=== PATIENT | female | born 1990 | race Caucasian/White ===

== ENCOUNTER 2020-03-29 21:01 | Emergency (ER) | payer OTHER ==
[~2020-03-29] VITALS: Ht 160 cm; Wt 79.4 kg
[2020-03-29 21:41] LABS: ABSOLUTE NEUTROPHILS 8.2 thou/uL (1.4-8.2); BASOPHILS 0.3 % (0.0-2.0); HEMOGLOBIN 14.5 gm/dL (12.0-15.0); LYMPHOCYTES 24.6 % (24.0-44.0); MCH 29.7 pg (26.0-34.0); MCHC 33.6 g/dL (28.0-37.0); MCV 88.4 fL (80.0-100.0); MONOCYTES 4.6 % (1.0-8.0); PLATELET COUNT 287 thou/uL (150-400); POLYS 69.5 % (36.0-66.0); RBC 4.86 mil/uL (4.20-5.00); RDW 13.5 % (10.5-14.5); WBC 11.8 thou/uL (4.0-11.0)
[2020-03-29 21:48] LABS: CALCIUM 10.2 mg/dL (8.5-10.1); CREATININE 0.9 mg/dL (0.6-1.0); POTASSIUM 3.2 mmol/L (3.5-5.1)
[2020-03-29 21:54] LABS: ALBUMIN 4.1 g/dL (3.4-5.0); TOTAL BILIRUBIN 0.7 mg/dL (0.2-1.0); TOTAL PROTEIN 7.9 g/dL (6.4-8.2)
[2020-03-29 22:32] LABS: URINE BILIRUBIN NEGATIVE (Negative); URINE BLOOD NEGATIVE (Negative); URINE CLARITY CLEAR; URINE COLOR YELLOW; URINE GLUCOSE-RANDOM* NEGATIVE (Negative); URINE KETONES NEGATIVE (Negative); URINE LEUKOCYTES-REFLEX NEGATIVE (Negative); URINE NITRITE-REFLEX NEGATIVE (Negative); URINE PROTEIN (DIPSTICK) NEGATIVE (Negative); URINE UROBILINOGEN 0.2 E.U./dl (0.2-1.0)
[2020-03-29 22:38] LABS: AMP/METHAMP Negative (Negative); BARBITURATES Negative (Negative); BENZODIAZEPINES Negative (Negative); COCAINE Negative (Negative); METHADONE Negative (Negative); OPIATES Negative (Negative); PCP Negative (Negative)
[2020-03-29 23:03] VITALS: BP 118/74
--- NOTE | 2020-03-30 14:49 | EKG ---
[address] [place] [address] ELECTROCARDIOGRAM REPORT Name: FARNAZ COOMBS Room #: DEP ISAIAH Lares#: [id number] Admission: 03/29/20 Attend Phys: Discharge: 03/29/20 Date of : [birth year] Report #: [id number] [facility] ED Test Date: 2020-03-29 Test Time: 21:25:40 Pat Name: FARNAZ COOMBS Department: Room: Gender: F [employer] Professional: nerissa : 1990 Requested By: Aron Foley Order Number: [id number] MD: Christopher Taylor Measurements Intervals [place] Rate: 92 P: 43 FL: 123 QRS: 65 QRSD: 102 T: 24 QT: 368 QTc: 456 Interpretive Statements Sinus rhythm Ventricular premature complex Baseline wander in lead(s) V3,V6 No previous ECG available for comparison Electronically Signed On 03-30-2020 14:49:08 [employer] by Christopher Taylor [email or web address] <ELECTRONICALLY SIGNED> By: Christopher aTylor MD, [facility] 03/30/20 1449 2125 24 Christopher Taylor MD, FACC /EPI
== END 2020-03-29 23:04 | disposition home or self-care (01) ==
LOC: ER 21:01
PROVIDERS: Nurse Practitioner
DX: R56.9 Unspecified convulsions (principal); G43.709 Chronic migraine without aura, not intractable, without status migrainosus; R41.0 Disorientation, unspecified; R53.83 Other fatigue; Z90.49 Acquired absence of other specified parts of digestive tract